=== PATIENT | male | born 2000 | race Caucasian/White ===

== ENCOUNTER 2019-04-10 14:55 | Emergency (ER) | payer OTHER ==
[~2019-04-10] VITALS: Ht 188 cm; Wt 64.6 kg
[2019-04-10 14:57] VITALS: BP 121/73
--- NOTE | 2019-04-10 15:36 | NUR ---
Patient/Caregiver given discharge instructions and they have confirmed that they understand the instructions. Patient ambulatory with steady gait.
== END 2019-04-10 15:37 | disposition home or self-care (01) ==
LOC: ED 15:30
DX: J02.0 Streptococcal pharyngitis (principal)
CPT/HCPCS: 93005; 99283